=== PATIENT | female | born 1935 | race Caucasian/White ===

== ENCOUNTER → 2017-04-26 | Outpatient (CLI) | payer OTHER | LOC: FIMAGING 10:44 | PROVIDERS: ATTEND Internal Medicine | DX: Z12.31 Encounter for screening mammogram for malignant neoplasm of breast (principal) | CPT/HCPCS: G0202 ==

== ENCOUNTER 2017-05-24 08:15 | Inpatient (IN) | payer OTHER ==
[~2017-05-24 08:15] MED LIST: ROPIVACAINE 0.2% 80 MG, EPINEPHrine 0.2 MG, KETOROLAC TROMETHAMINE 30 MG in SYRINGE 0 ML IU ONE; TRANEXAMIC ACID 3,000 MG in NS 50 ML IRR ONE
[2017-05-24] MEDS ORDERED: TRANEXAMIC ACID 3,000 MG/50 ML BAG IRR ONE (09:21)
[2017-05-24] MEDS ORDERED: FAMOTIDINE 20 MG TAB PO ONE (09:22)
[2017-05-24] MEDS ORDERED: ceFAZolin 2 GM/SWFI 2 GM/20 ML SYR IVP ONE (09:22)
[2017-05-24] MEDS ORDERED: DEXAMETHASONE 4 MG/ML VIAL IVP ONE (09:22)
[2017-05-24] MEDS ORDERED: LIDOCAINE 1% 2 ML INJ ID PRN (09:22)
[2017-05-24] MEDS ORDERED: ACETAMINOPHEN 325 MG TAB PO ONE (09:22)
[2017-05-24] MEDS ORDERED: LR 1,000 ML IV ONE (09:22)
[2017-05-24] MEDS ORDERED: LIDOCAINE 1% 2 ML INJ ONE (09:29)
[2017-05-24] MEDS ORDERED: MIDAZOLAM 2 MG/2 ML VIAL IVP ONE (09:48)
--- NOTE | 2017-05-24 09:48 | PDANEPAE ---
ANE History of Present Illness here for L THOMPSON ANE Past Medical History - Cardiovascular History Hx Hypertension: No Hx Arrhythmias: No Hx Chest Pain: No Hx Coronary Artery / Peripheral Vascular Disease: No Hx CHF / Valvular Disease: No Hx Palpitations: No - Pulmonary History Hx COPD: No Hx Asthma/Reactive Airway Disease: No Hx Recent Upper Respiratory Infection: No Hx Oxygen in Use at Home: No Hx Sleep Apnea: No Sleep Apnea Screening Result - Last Documented: Negative - Neurologic History Hx Cerebrovascular Accident: No Hx Seizures: No Hx Dementia: No - Endocrine History Hx Diabetes: No Endocrine History Comment: TOTAL THYROIDECTOMY - Renal History Hx Renal Disorders: Yes Renal History Comment: URGE - Liver History Hx Hepatic Disorders: No - Neurological & Psychiatric Hx Hx Neurological and Psychiatric Disorders: No - Cancer History Hx Cancer: No - Congenital Disorder History Hx Congenital Disorders: No - GI History Hx Gastrointestinal Disorders: No - Other Health History Other Health History: OSTEOARTHRITIS - Chronic Pain History Chronic Pain: Yes - Surgical History Prior Surgeries: LT TOTAL KNEE. TOTAL THYROIDECTOMY. MALIK CATARACTS. REMVL SHLDR GROWTH. ABD HYST. RT HAND MIDDLE FINGER CRUSHED ANE Review of Systems Review of Systems: - Exercise capacity METS (RN): 4 METS ANE Patient History - Allergies Allergies/Adverse Reactions: No Known Allergies Allergy (Unverified 05/25/10 10:24) - Home Medications Home Medications: Acetaminophen [Tylenol 325mg (*)] 325 mg PO DAILY PRN 04/18/17 [Last Taken Unknown] Calcium Carbonate [Oyster Shell Calcium 500 mg (*)] 500 mg PO DAILY 04/18/17 [ Last Taken Unknown] Levothyroxine [Synthroid 175 mcg (*)] 175 mcg PO DAILY06 04/18/17 [Last Taken Unknown] Naproxen Sodium [Aleve 220 MG (*)] 220 mg PO BID PRN 04/18/17 [Last Taken Unknown] [place]-3 Fatty Acids [Fish Oil 1000 mg (*)] 1,000 mg PO DAILY 04/18/17 [Last Taken Unknown] - NPO status NPO Since - Liquids (Date): 05/24/17 NPO Since - Liquids (Time): 08:30 NPO Since - Solids (Date): 05/23/17 NPO Since - Solids (Time): 22:00 - Smoking Hx Smoking Status: Former smoker ANE Labs/Vital Signs - Vital Signs Height: 154.94 cm Weight: 68.039 kg
[2017-05-24] MEDS ORDERED: fentaNYL 100 MCG/2 ML INJ ONE (10:45)
[2017-05-24] MEDS ORDERED: PROPOFOL/EMULSION 500 MG/50 ML BOTTLE IV ONE (10:48)
--- NOTE | 2017-05-24 11:16 | PDHPUP ---
History & Physical Update H&P update statement: This history and physical update is based on an assessment of the patient which was completed after admission or registration (within 24 hours), but prior to the surgery/procedure. H&P update: H&P reviewed & patient examined, no change in patient's condition since H&P completed
[2017-05-24] MEDS ORDERED: epHEDrine SULFATE 10 MG/ML SYR IVP PRN (11:49)
[2017-05-24] MEDS ORDERED: DEXAMETHASONE 4 MG/ML VIAL IVP PRN (11:49)
[2017-05-24] MEDS ORDERED: ONDANSETRON 4 MG/2 ML VIAL IVP PRN ×2 (11:49→12:16)
[2017-05-24] MEDS ORDERED: ALBUTEROL 3 ML DEYVIAL IH PRN (11:49)
[2017-05-24] MEDS ORDERED: NALOXONE HCL 0.4 MG/ML INJ IVP PRN (11:49)
[2017-05-24] MEDS ORDERED: PHENYLEPHRINE HCL 100 MCG/ML SYR IVP PRN (11:49)
[2017-05-24] MEDS ORDERED: HYDROmorphONE/DILAUDID 1 MG/ML INJ IVP PRN (11:49)
[2017-05-24] MEDS ORDERED: fentaNYL 100 MCG/2 ML INJ IVP PRN (11:49)
[2017-05-24] MEDS ORDERED: MAGNESIUM HYDROXIDE 30 ML UDCUP PO PRN (12:16)
[2017-05-24] MEDS ORDERED: METOCLOPRAMIDE 10 MG/2 ML VIAL IVP PRN (12:16)
[2017-05-24] MEDS ORDERED: diphenhydrAMINE 25 MG CAP PO PRN (12:16)
[2017-05-24] MEDS ORDERED: POLYETHYLENE GLYCOL 3350 17 GM PKT PO PRN (12:16)
[2017-05-24] MEDS ORDERED: PROMETHAZINE HCL 25 MG SUPPR PR PRN (12:16)
[2017-05-24] MEDS ORDERED: PROMETHAZINE HCL 25 MG/ML INJ IVP PRN (12:16)
[2017-05-24] MEDS ORDERED: BISACODYL 10 MG SUPP PR PRN (12:16)
[2017-05-24] MEDS ORDERED: LACTULOSE 20 GM/30 ML UDCUP PO PRN (12:16)
[2017-05-24] MEDS ORDERED: DIPHENOXYLATE/ATROPINE LOMOTIL 1 TAB PO PRN (12:16)
[2017-05-24] MEDS ORDERED: ONDANSETRON DISINTEGRATING 4 MG TAB PO PRN (12:16)
[2017-05-24] MEDS ORDERED: TEMAZEPAM 15 MG CAP PO PRN (12:16)
--- NOTE | 2017-05-24 12:16 | POSTOPPROG ---
Post Op Note Date of Operation: 05/24/17 Surgeon: Catrachito Corrales Food Processing Scientist: lucas watt Anesthesiologist: dr. singer Anesthesia: Spinal Pre-op Diagnosis: left hip OA Post-op Diagnosis: same Indication: left hip pain due To OA that failed conservative measures Procedure: L THOMPSON ant approach Findings: severe hip OA Inf/Abcess present in the surg proc area at time of surgery?: No EBL: 100-500
[2017-05-24] MEDS ORDERED: LR 1,000 ML IV SCH (12:30)
[2017-05-24] MEDS ORDERED: ceFAZolin 2 GM/DEXTROSE 100 ML IV SCH (14:00)
--- NOTE | 2017-05-24 14:07 | POSTANESTH ---
Post Anesthetic Evaluation Cardiovascular Status: Normal, Stable Respiratory Status: Normal, Stable Level of Consciousness/Mental Status: Can Participate in Eval Pain Control: Adequate, Prn Tx Ordered Nausea/Vomiting Control: Adequate, Prn Tx Ordered Complications Possibly Related to Anesthesia: None Noted
[2017-05-24] MEDS: oxyCODONE IR 5 MG TAB PO PRN ×3 (15:55→21:46)
[2017-05-24] MEDS: CYCLOBENZAPRINE 10 MG TAB PO PRN (15:56)
--- NOTE | 2017-05-24 17:02 | ASMTCMCOM ---
CM Note CM Note Notes: Referral sent to [facility] in [employer], during [facility] pre-call pt indicated [facility] was SNF preference. CM to follow. Date Signed: 05/24/2017 05:01 PM Electronically Signed By:BHANU Solorzano
[2017-05-24] MEDS: ACETAMINOPHEN 325 MG TAB PO SCH (18:03)
[2017-05-24] MEDS: ceFAZolin 2 GM/SWFI 2 GM/20 ML SYR IVP SCH (18:27)
[2017-05-24] MEDS: SENNOSIDES/DOCUSATE SODIUM TAB PO SCH (19:58)
[2017-05-24] MEDS: FAMOTIDINE 20 MG TAB PO SCH (19:58)
[2017-05-24] MEDS: ASPIRIN 81 MG CHEWABLE TAB PO SCH (19:58)
[2017-05-25] MEDS: ACETAMINOPHEN 325 MG TAB PO SCH ×3 (00:18→11:39)
--- NOTE | 2017-05-25 02:10 | GOP ---
[f rep st] OPERATIVE REPORT DATE OF OPERATION: 05/24/2017 SURGEON: Toshia Corrales MD APPLICATION TECHNICIAN: Nakia Corrales PA-C ANESTHESIA: Spinal. PREOPERATIVE DIAGNOSIS: Left hip osteoarthritis. POSTOPERATIVE DIAGNOSIS: Left hip osteoarthritis. PROCEDURE PERFORMED: Left total hip arthroplasty with x-ray. FINDINGS: INDICATIONS: The patient has progressively worsening arthritis of the hip which has failed medical m anagement. The patient understands the treatment options including continued non-operative care and has selected surgical intervention. The patient has decided to undergo total hip arthroplasty via th e direct anterior approach, understanding the risks of the procedure including, but not limited to, n eurovascular injury, infection, persistent pain, component wear and loosening, deep venous thrombosis , pulmonary embolism, limb length inequality, hip instability (including dislocation), and intra-oper ative fractures. DESCRIPTION OF PROCEDURE: After proper identification of the patient including verification and eduar ing the surgical site, the patient was brought to the operating room and placed in the supine positio n. All bony prominences were well padded. Anesthesia was induced without complication and intraveno us prophylactic antibiotics were administered prior to skin incision. The operative leg was placed in the Trumpf Arch table extension and the well leg in a [place] leg ho lder. The patient was prepped and draped in the usual sterile fashion. The C-arm was draped for int ra-operative fluoroscopy to check acetabular position, femoral component position including leg lengt h and femoral offset. Attention was then drawn to surgical exposure of the hip. An incision was made with a #10 Bard Merrick r blade starting 3 cm lateral and 3 cm distal to the anterior superior iliac spine measuring 8-10 cm and coursing distally toward the greater trochanter. The skin and subcutaneous tissues were divided sharply down to the fascia sharmin. The fascia sharmin was incised in line with the skin incision exposing the underlying tensor fascia sharmin muscle. The muscle was bluntly elevated from the fascia and the f irst extracapsular Cobra retractor was placed laterally at the junction of the superior femoral neck and greater trochanter. The lateral femoral circumflex vessels were identified, cauterized, and divi ded with the Aquamantys bipolar cautery. The deep investing fascia of the TFL was divided to allow p chandler mobilization of the muscle preventing damage during the retraction. The reflected head of the rectus femoris muscle was elevated off the anterior hip capsule and a medial Cobra retractor was plac ed just proximal to the lesser trochanter. The anterior capsulotomy was made sharply from the superolateral acetabulum to the saddle junction of the superior femoral neck and greater trochanter, then coursing inferomedial towards the lesser troc hanter. The retractors were then placed in the intracapsular position for femoral neck osteotomy. C orresponding to pre-operative templating, the osteotomy was made with the oscillating saw carefully p rotecting the greater trochanter and soft tissues. The femoral head was removed from the acetabulum with a corkscrew and confirmed to be severely arthritic with exposed bone, deformity and osteophytes. Similar findings were confirmed in the acetabulum. The Arch table extension was then placed in 40 degrees external rotation. Attention was then drawn to the acetabular preparation. After placement of the anterior and posterio r Cobra retractors outside the labrum and intracapsular, the circumferential labrum was removed sharp ly. The foveal contents were then removed and hemostasis obtained with cautery. The first reamer selected was sized using the removed femoral head. Reaming began with medialization and then commenced in 2 mm increments at 45 degrees of abduction and 15 degrees of anteversion using fluoroscopic navigation. Reaming ceased 1 mm less than the definitive acetabular component and tu esponded to the pre-operative templating. The final acetabular component was inserted using fluorosc opy to achieve proper orientation yielding excellent purchase and stability in the acetabulum. The f inal acetabular liner was then placed and its seating confirmed. Attention was then turned to the femur. The Arch table extension was placed in extension and adducti on, delivering the osteotomized femoral neck into the wound. A 2-pronged femoral elevator was placed at the calcar and another at the tip of the greater trochanter. The posterolateral capsule was rele ased with cautery allowing mobilization of the femur lateral and anterior for preparation. The exter nal rotators were visualized and preserved. A curette and rongeur were used to open the starting poi nt for broaching. Serial broaching started with the #0 broach and ended with the broach that exhibit ed excellent fit in the proximal femur. A change in pitch during mallet strikes was accompanied by t he inability to advance the broach any further. The trial reduction was performed and fluoroscopic n avigation was utilized to check limb length. Adjustments were made to equalize limb length according ly. After the final trials were accepted they were removed and the wound was copiously lavaged. The femo ral component was seated to the same depth as the final broach and the femoral head was impacted onto the clean trunnion. The hip was then reduced for the final time and once more fluoroscopy was used to check that limb length equality was achieved. The wound was irrigated and closed in layers, the fascia sharmin with 2-0 Quill, the subcutaneous tissue with 2-0 Quill, and the skin with Dermabond. Sterile dressings were applied. Final sharps and spon ge counts were accurate. The patient was then transferred to a hospital bed and brought to the [facility] room in stable condition. IMPLANTS: Accolade II, size 6 at 127. Acetabular component a 54 mm Tritanium. The liner is a Tride nt X3, 36 mm. The head is a Biolox Delta, 36 mm -2.5. /[id number]/MODL
[2017-05-25] MEDS: ceFAZolin 2 GM/SWFI 2 GM/20 ML SYR IVP SCH (03:27)
[2017-05-25] MEDS: oxyCODONE IR 5 MG TAB PO PRN ×2 (04:41→11:38)
[2017-05-25] MEDS: CYCLOBENZAPRINE 10 MG TAB PO PRN (05:34)
[2017-05-25] MEDS ORDERED: LEVOTHYROXINE 175 MCG TAB PO SCH (06:00)
[2017-05-25 07:37] VITALS: RESP 16
[2017-05-25] MEDS: FAMOTIDINE 20 MG TAB PO SCH (08:26)
[2017-05-25] MEDS: SENNOSIDES/DOCUSATE SODIUM TAB PO SCH (08:26)
[2017-05-25] MEDS: ASPIRIN 81 MG CHEWABLE TAB PO SCH (08:27)
--- NOTE | 2017-05-25 08:39 | PDIAF ---
- Diagnosis Diagnosis: s/p L THOMPSON Code Status: Full Code - Medication Management Discharge Medications: Medications to Continue on Transfer Levothyroxine [Synthroid 175 mcg (*)] 175 mcg PO DAILY06 04/18/17 [Last Taken 07:00] [place]-3 Fatty Acids [Fish Oil 1000 mg (*)] 1,000 mg PO DAILY 04/18/17 [Last Taken 1 Week Ago ~05/17/17] Multivitamins [Multivitamin (*)] 1 each PO DAILY 05/24/17 [Last Taken 1 Week Ago ~05/17/17] Acetaminophen [Tylenol 325mg (*)] 650 mg PO Q6HRS tab 05/25/17 [Last Taken Unknown] Aspirin [Aspirin 81mg (*)] 81 mg PO BID tab.chew 05/25/17 [Last Taken Unknown] Cyclobenzaprine [Flexeril 10 MG (*)] 10 mg PO Q8HRS PRN tab 05/25/17 [Last Taken Unknown] Sennosides/Docusate Sodium [Senokot-S] 1 - 2 tab PO BID tab 05/25/17 [Last Taken Unknown] celeCOXIB [Celebrex (*)] 200 mg PO DAILY cap 05/25/17 [Last Taken Unknown] oxyCODONE IR [Oxycodone Ir (*)] 5 - 10 mg PO Q3HRS PRN tab 05/25/17 [Last Taken Unknown] Discharge Medications: Refer to the Discharge Home Medication list for PRN reason. - Orders Diet Recommendation: no restrictions on diet Diet Texture: Regular Texture Diet Additional: Joint Protocol-Hip Replacement. Follow up with Dr. Silver office as scheduled. After surgery instructions: Take Aspirin 81mg by mouth morning and evening for 4 weeks (helps to prevent blood clots). Wear thigh high NUNU hose on both legs during the daytime for 2 weeks (helps to prevent blood clots and decrease swelling in the surgical leg). It is ok to remove NUNU hose at night time to give your legs a break. It is common for swelling and bruising to occur in the entire surgical leg even extending to the foot, if concerned call Dr. Woods office [phone]. Weight bearing as tolerated. Use a walker for 7-14 days. Do exercises in the book 2-3 times a day. Ice at least 3-5 times a day for 30 minutes each time, if not more often. If you have further questions that are not addressed here, please look at the information packet handed to you at the preop appointment. Most will be answered on the FAQs, after surgery instructions and incision care pages. You may also call Dr. Silver office with questions as well. *IF YOU HAVE A LIFE THREATENING EMERGENCY, CALL 911. FOR NON-LIFE THREATENING ISSUES, PLEASE CALL DR. SILVER OFFICE FIRST. A PHYSICIAN IS FOREST LOGISTICS MANAGER 21/11. Incision/ Dressing Care: May shower tomorrow, Incision dressing is waterproof. Do not soak in water, but shower is ok. Keep the incision (mosley) dressing clean and dry. If the incision dressing gets soiled or wet underneath, change dressing to the dressing given to you by the hospital. (mosley dressing will turn black if drainage occurs). Remove incision dressing (mosley one) two weeks after surgery. Leave steri strips alone. They will fall off on their own. Do not have anyone else remove the incision dressing prior to the stated recommendation (2 weeks after surgery). If there are incision concerns, contact Dr. Woods office. (Nakia or Dr. Corrales may remove earlier if concerns arise). If incision site (mosley dressing) has drainage, call Dr. Woods office, . Nakia and Dr. Corrales may ask you to come into the office for further evaluation - Follow Up Care Current Providers and Referrals: Yojana Chapman [Primary Care Provider] - Nakia Corrales PA [Physician Division Road Supervisor] - 06/15/17 10:15 am
--- NOTE | 2017-05-25 08:42 | GDS ---
[f rep st] DISCHARGE SUMMARY ADMISSION DIAGNOSIS: Left hip osteoarthritis. DISCHARGE DIAGNOSIS: Left hip osteoarthritis. PROCEDURE: Left total hip arthroplasty. VTE PROPHYLAXIS: Aspirin 81 mg recommended twice daily for a month. BRIEF DESCRIPTION OF HOSPITAL STAY: Patient was admitted for an elective joint arthroplasty. The pa radha tolerated the procedure well and has passed physical therapy. The patient was given appropriat e antibiotic prophylaxis and venous thromboembolism prophylaxis. The patient's pain was well control led on oral pain medication, patient was holding down food, and had urinated. Decision was made to d ischarge the patient. The patient was given post-operative prescriptions pre-operatively. PLAN: Please follow up as scheduled at Dr. Corrales's office June 15 at 10:15 a.m. /[id number]/MODL
--- NOTE | 2017-05-25 08:52 | SOAPPROG ---
SOAP Progress Note Assessment/Plan: Assessment: Patient is doing well POD 1 s/p L THOMPSON Pain management: pain is well controlled on oral pain meds. VTE ppx: recommend aspirin 81 mg BID for 4 weeks, cont NUNU and SCDs Anemia: level is expected initially postop. Asymptomatic. Continue to monitor D/c planning: d/c to SNF today pending release from PT Plan: 05/25/17 08:52 Subjective: Carolyn is doing well today, states she has not walked much yet, denies SOB, chest pain and N/V. Objective: Vital Signs Temp Pulse Resp BP Pulse Ox 36.7 C 71 16 119/73 95 05/25/17 07:36 05/25/17 07:36 05/25/17 07:36 05/25/17 07:36 05/25/17 07:36 Laboratory Results 05/25/17 04:16 05/25/17 04:16 05/24/17 05/25/17 05/26/17 05:59 05:59 05:59 Intake Total 1585 800 Output Total 2100 Balance -515 800 LLE: incision dressing is clean and dry, NVI, +pf/df ICD10 Worksheet Patient Problems: Problems Problem Status Onset Primary localized osteoarthritis of left hip Acute
--- NOTE | 2017-05-25 09:46 | ASMTCMCOM ---
CM Note CM Note Notes: Pt accepted at [facility], her first choice SNF. D/c orders are in but needs [employer] auth in order to accept. Transport will be set up when ins auth obtained. CM updated pt and RN. Date Signed: 05/25/2017 09:46 AM Electronically Signed By:BHANU Solorzano
--- NOTE | 2017-05-25 11:01 | ASMTLACE ---
NORBERT Length of stay for Answers: 1 day current admission Acuity / Level of Answers: Yes Care: Did the patient have an inpatient admission? # of Emergency department Answers: 0 visits in the last 6 months Score: 4 Date Signed: 05/25/2017 11:00 AM Electronically Signed By:BHANU Solorzano
--- NOTE | 2017-05-25 11:20 | ASMTCMCOM ---
CM Note CM Note Notes: [facility] has insurance auth, scheduled transport for 13:00. Orders sent in All[employer]. Date Signed: 05/25/2017 11:19 AM Electronically Signed By:BHANU Solorzano
[2017-05-25 12:06] VITALS: BP 147/84; PULSE 77; TEMP 97.7; O2SAT 98
--- NOTE | 2017-05-25 14:10 | ASDISCHSUM ---
Discharge Information Plan Status:SNF Medically Cleared to Leave: Discharge Date:05/25/2017 01:02 PM D/C Disposition:[facility] Facility ADT D/C Disposition:Prison Facility Projected Discharge Date:05/25/2017 11:00 AM Transportation at D/C: Discharge Delay Reason: Follow-Up Date:05/25/2017 11:00 AM Discharge Slot: Final Diagnosis: Placement Information Referral Type:*Skilled Nursing/SNF Referral ID:[id number] Provider Name:[facility] Address 1:[address] Address 2: City:[place] Selection Factors: State:[place] Patient Contact Information Contact Name:JERALDREENARAJANI Relationship:Daughter Address:[address]:[place] Alternate Phone: State/Zip Code:[place] [address] Email: Financial Information Financial Class:Medicare Advantage Plans Primary Plan Desc:[facility] One Touch EMR Primary Plan Number:[id number] Secondary Plan Desc: Secondary Plan Number: Assessment Information [facility] CM Progress Note CM Note CM Note Notes: Referral sent to [facility] in [employer], during [facility] pre-call pt indicated [facility] was SNF preference. CM to follow. Date Signed: 05/24/2017 05:01 PM Electronically Signed By:BHANU Solorzano [facility] CM Progress Note CM Note CM Note Notes: Pt accepted at [facility], her first choice SNF. D/c orders are in but [facility] needs [employer] auth in order to accept. Transport will be set up when ins auth obtained. CM updated pt and RN. Date Signed: 05/25/2017 09:46 AM Electronically Signed By:BHANU Solorzano LACE LACE Length of stay for Answers: 1 day current admission Acuity / Level of Answers: Yes Care: Did the patient have an inpatient admission? # of Emergency department Answers: 0 visits in the last 6 months Score: 4 Date Signed: 05/25/2017 11:00 AM Electronically Signed By:BHANU Solorzano [facility] CM Progress Note CM Note CM Note Notes: [facility] insurance auth, scheduled transport for 13:00. Orders sent in Allscripts. Date Signed: 05/25/2017 11:19 AM Electronically Signed By:BHANU Solorzano Intervention Information
== END 2017-05-25 13:02 | DRG 470 ==
LOC: F3N 09:01
PROVIDERS: ADMIT Orthopaedic Surgery; ATTEND Orthopaedic Surgery
PROC: 0SRB04Z Replacement of Left Hip Joint with Ceramic on Polyethylene Synthetic Substitute, Open Approach (ICD-10-PCS; principal; 2017-05-24 11:15)
DX: M16.12 Unilateral primary osteoarthritis, left hip (principal); E89.0 Postprocedural hypothyroidism; Z87.891 Personal history of nicotine dependence
CPT/HCPCS: 97110-GP; 97161-GP; 97165-GO; 97535-GO; G8978-GP-CJ; G8979-GP-CI; G8987-GO-CI; G8988-GO-CH; J0171; J0690; J1100; J1885; J2370; J2704; J2795; J3010

== ENCOUNTER 2018-03-29 18:15 | Emergency (ER) | payer OTHER ==
--- NOTE | 2018-03-29 18:50 | EDPHY ---
HPI/HX/ROS/PE/MDM Narrative: CHIEF COMPLAINT: Fall, facial laceration HISTORY OF PRESENT ILLNESS: This patient is an 82 year old female with history of hypothyroidism. She presents with facial pain following a mechanical fall shortly prior to arrival. She tripped over a curb in the dark and fell forward, striking her face and sustaining a laceration over her left eye. She complaints of significant swelling over her eye. She denies neck pain, chest pain, or shortness of breath. She endorses a mild headache. She denies any extremity numbness, paresthesias, weakness. No diplopia. No tooth malocclusion. She is not anticoagulated. She felt well prior to her fall. No fever, chills, chest pain, shortness of breath, palpitations, vomiting, diarrhea, urinary complaints, headache, lightheadedness. REVIEW OF SYSTEMS: A comprehensive 10 system review of systems is otherwise negative aside from elements mentioned in the history of present illness and medical decision making. PAST MEDICAL HISTORY: Hypothyroid. SOCIAL HISTORY: Retired. Friend at bedside. Lives in [place]. VITAL SIGNS: Reviewed by me GENERAL: Well-developed, well-nourished, resting comfortably in no respiratory distress. HEENT: 2.5cm linear laceration and hematoma over left eyebrow. Significant left periorbital swelling with ecchymosis. Abrasion to left chin, bridge of nose. Eyes: No icterus, no injection. Mouth: No malocclusion. No blood in the mouth. Moist mucous membranes. No erythema or lesions. Neck: No midline tenderness. Supple with no adenopathy. LUNGS: Clear to auscultation bilaterally, no wheezes, rhonchi or rales. CARDIAC: Regular rate and rhythm, no rubs, murmurs or gallops. ABDOMEN: Soft, nontender, nondistended, bowel sounds normal. BACK: No CVA tenderness. EXTREMITIES: Abrasion hypothenar eminence right palm. No edema. Range of motion is normal throughout. NEURO: Alert and oriented, cranial nerves 2-12 are intact, motor strength 5/5 throughout. Sensation intact to light touch. SKIN: Warm and dry, no rash. PSYCHIATRIC: Normal mentation, no agitation. Portions of this note were transcribed by a medical receptionist biller. I personally performed a history, physical exam, medical decision making, and confirmed accuracy of information the transcribed note. ED Course: 82 y/o female presents with significant periorbital swelling and ecchymosis as well as a 2.5cm linear laceration over the left eyebrow following a mechanical fall this evening. Plan for CT head/neck. The patent's elbow is sore from her fall, but has full ROM. She declines declines x-ray. Plan to administer 1,000mg PO Tylenol for pain relief. Plan to clean and repair laceration under standard ED protocol. The patient states she plans to travel to [facility] this Monday for two weeks for vacation. Laceration repair performed by MARIELA Spears. See procedure note for details. 20:[address] Watts, radiologist. CT head shows large left frontal/ orbital hematoma with blood in the left maxillary sinus with suggestion of nondisplaced orbital floor fracture. No evidence of prolapse of intraorbital contents. CT cervical spine negative for acute processes. Reassessed patient. Discussed imaging results. Plan to discharge home in good condition with referral to ophthalmology for further evaluation. The patient still plans to travel to [place] this weekend. Discussed importance of ophthalmology follow-up and reasons to seek ophthalmology care while in [place]. Follow up and strict return precautions discussed. The patient is comfortable with this plan. MDM: Differential diagnosis of fall in the elderly was considered including but not limited to intracranial injury, long bone and pelvic bone fracture, spinal injury, intrathoracic injury, extremity injury, intra-abdominal injury, lacerations, abrasions, and contusions. - Data Points Imaging Results: Cervical Spine CT 03/29/18 19:24 Impression: 1. No acute, displaced cervical spine fracture or subluxation. 2. If the patient has persistent pain or neurologic deficits, consider cervical spine MRI. Sherita Fischer was notified of these findings at 8:25 PM on 03/29/[address] 03/29/18 19:24 Impression: Large left frontal/orbital hematoma with blood in the left maxillary sinus with suggestion of nondisplaced orbital floor fracture. No evidence of prolapse of intraorbital contents. Sherita Fischer was notified of these findings at 8:25 PM on 03/29/2018 Imaging: Discussed imaging studies w/ square dance caller Radiologist Medications Given: Discontinued Medications Acetaminophen (Tylenol) 1,000 mg PO EDNOW ONE Stop: 11/29/18 20:05 Last Admin: 03/29/18 20:06 Dose: 1,000 mg General Time Seen by Provider: 03/29/18 18:34 Initial Vital Signs: Initial Vital Signs Temperature (C) 36.9 C 03/29/18 18:18 Heart Rate 104 H 03/29/18 18:18 Respiratory Rate 18 03/29/18 18:18 Blood Pressure 207/115 H 03/29/18 18:18 O2 Sat (%) 93 03/29/18 18:18 O2 Delivery Mode Room Air Allergies/Adverse Reactions: No Known Allergies Allergy (Unverified 03/29/18 18:22) Home Medications: Medication Instructions Recorded Levothyroxine [Synthroid 175 mcg 175 mcg PO DAILY06 04/18/17 (*)] [place]-3 Fatty Acids [Fish Oil 1000 1,000 mg PO DAILY 04/18/17 mg (*)] Multivitamins [Multivitamin (*)] 1 each PO DAILY 05/24/17 Acetaminophen [Tylenol 325mg (*)] 650 mg PO Q6HRS tab 05/25/17 Aspirin [Aspirin 81mg (*)] 81 mg PO BID tab.chew 05/25/17 Cyclobenzaprine [Flexeril 10 MG 10 mg PO Q8HRS PRN tab 05/25/17 (*)] Sennosides/Docusate Sodium 1 - 2 tab PO BID tab 05/25/17 [Senokot-S] celeCOXIB [Celebrex (*)] 200 mg PO DAILY cap 05/25/17 oxyCODONE IR [Oxycodone Ir (*)] 5 - 10 mg PO Q3HRS PRN tab 05/25/17 Departure - Departure Disposition: Home, Routine, Self-Care Clinical Impression: Orbital floor fracture Qualifiers: Encounter type: initial encounter Fracture type: closed Laterality: left Qualified Code(s): S02.32XA - Fracture of orbital floor, left side, initial encounter for closed fracture Facial laceration Qualifiers: Encounter type: initial encounter Qualified Code(s): S01.81XA - Laceration without foreign body of other part of head, initial encounter Closed head injury Qualifiers: Encounter type: initial encounter Qualified Code(s): S09.90XA - Unspecified injury of head, initial encounter Condition: Good Instructions: Laceration (ED), Facial Fracture (ED), Facial Contusion (ED) Additional Instructions: Please follow up with ophthalmology when you return from [facility] for evaluation of your orbital floor fracture. We have referred you to our production shift supervisor chairperson anesthesiology, Dr. Mancini. Your sutures are dissolvable, so you will not need to have sutures removed while you are travelling. Please keep the area clean and dry. Seek care urgently and visit your nearest emergency department if you develop fever, redness, discharge from wound, increasing pain or other worsening of condition. If you developed double vision, dizziness, confusion, please follow up in the nearest emergency department. Return to the Emergency Department for severe headache, vomiting, vision changes , confusion, fever or other concerns. Adult Pain & Fever Control: We recommend Acetaminophen (Tylenol) and Ibuprofen (Motrin,Advil) for pain and fever control. When fever is high or pain severe, both drugs can be used at the same time, but at different intervals. Please note the time differences. Your dose is: Acetaminophen 650mg every 4 to 6 hours Ibuprofen 400mg every 6-8 hours with food Note: do not take Acetaminophen with Hydrocodone (Vicodin, Lortab) or Oxycodone (Percocet). These medications also contain Acetaminophen. No more than 3000mg of Acetaminophen should be taken in 24 hours (for an adult). Referrals: Yojana Chapman [Primary Care Provider] - As per Instructions Oliver Mancini MD [Medical Doctor] - As per Instructions Report Scribed for: Sherita Fischer Report Scribed by: Miranda Mccormack Date of Report: 03/29/18 Time of Report: 19:18
[2018-03-29] MEDS ORDERED: ACETAMINOPHEN 500 MG TAB PO ONE (20:04)
--- NOTE | 2018-03-29 20:30 | EDPHY ---
ED Progress Note Narrative: Laceration Repair Verbal consent obtained by patient. Risks discussed, including but not limited to infection, pain, retained foreign body, need for additional repair, poor cosmetic result, tendon damage, nerve damage, poor wound healing, vascular damage. Alternatives to repair discussed. [place] protocol used to establish correct patient, procedure, equipment, manager decision support, and site. Anesthesia obtained by local infiltration with 0.5 % bupivacaine with epinephrine, 2 mL. Anesthetized with 0.5% bupivacaine with epinephrine. Laceration location left eyebrow, length 2.5 cm, depth 2 mm, Repair type simple. Patient was prepped and draped in usual sterile fashion. Hemostasis achieved with direct pressure. Wound explored through full range of motion and entire depth of wound probed and visualized with gloved finger. No suspicion for nerve damage, tendon damage, underlying fracture, vascular damage , foreign body, or contamination. Area was cleansed with Shur-Clens and irrigated with sterile saline as per protocol. No foreign body or material removed. Repair method 4-0 Vicryl. One Single running sutures placed. Well aligned, closely approximated. wound was dressed with Band-Aid. Patient tolerated well with no immediate complications. Wound care: Clean and dry x 24 hours, gently clean with soap and water, cover with topical antibiotic ointment/bandage. Suture/Staple removal: Dissolvable sutures in 5 days otherwise removal upon returning home from [facility] ([facility])
[2018-03-29 21:04] VITALS: BP 190/107
== END 2018-03-29 21:04 | disposition home or self-care (01) ==
PROC: 0HQ1XZZ Repair Face Skin, External Approach (ICD-10-PCS; principal; 2018-03-29)
DX: S01.81XA Laceration without foreign body of other part of head, initial encounter (principal); E03.9 Hypothyroidism, unspecified

== ENCOUNTER → 2018-06-21 | Outpatient (CLI) | payer OTHER | LOC: FIMAGING 13:03 | PROVIDERS: ATTEND Internal Medicine | DX: Z12.31 Encounter for screening mammogram for malignant neoplasm of breast (principal) ==

== ENCOUNTER → 2018-07-18 | Outpatient (CLI) | payer OTHER | LOC: FIMAGING 10:24 | PROVIDERS: ATTEND Internal Medicine | DX: Z13.820 Encounter for screening for osteoporosis (principal); M85.89 Other specified disorders of bone density and structure, multiple sites ==